=== PATIENT | female | born 1960 | race Asian ===

== ENCOUNTER 2016-10-13 16:45 | Inpatient (IN) | payer MEDICAID ==
[~2016-10-13] VITALS: Ht 165.1 cm; Wt 95.2 kg
--- NOTE | 2016-10-13 16:59 | NUR ---
PT RETURNED TO LOBBY PENDING ROOM AVAILABILITY. VSS. RESPS E/U. MEDICATED W/ZOFRAN 4MG PO PER PROTOCOL PER ALEKSANDER LION RN.
--- NOTE | 2016-10-13 17:12 | NUR ---
ADMITTING CALLED STATING PT IS LAYING ON ED LOBBY FLOOR; PT FOUND ON ED LOBBY FLOOR STATING SHE IS MORE COMFORTABLE THERE. PT HAS NO S/S OF RESP DISTRESS; SKIN IS WNL
--- NOTE | 2016-10-13 18:20 | NUR ---
PT UNABLE TO GIVE URINE SAMPLE OF YET. PT INST TO PROVIDE CLEAN CATCH URINE SOON POSSIBLE
--- NOTE | 2016-10-13 18:22 | NUR ---
US AT BEDSIDE AT THIS TIME.
[2016-10-13 18:59] LABS: BASOPHIL % 0.2 % (0-2); PLATELET COUNT 205 x10^3mcL (130-400); RED CELL DISTRIBUTION WIDTH 13.7 % (11.5-14.5)
--- NOTE | 2016-10-13 19:00 | NUR ---
REPORT GIVEN TO ANAMARIA MILLER RESUMING CARE OF PT AT THIS TIME
[2016-10-13 19:12] LABS: CALCIUM 9.2 mg/dL (8.5-10.1); CARBON DIOXIDE 30.6 mmol/L (21-32); CHLORIDE SERUM 102 mmol/L (98-107); CREATININE SERUM 0.9 mg/dL (0.6-1.0); GFR1 > 60 mL/min; GLUCOSE SERUM 142 mg/dL (74-106); POTASSIUM SERUM 4.1 mmol/L (3.5-5.1); SODIUM SERUM 139 mmol/L (136-145)
--- NOTE | 2016-10-13 19:14 | NUR ---
REC'D PT IN ED WITH EYES CLOSED, RESP E/U, RESPONDS TO VERBAL STIMULI. PT HAS NO COMPLAINATS AT THIS TIME. FLUIDS STILL INFUSING, IV INTACT AND PATENT. AT BEDSIDE
[2016-10-13 19:27] LABS: ALBUMIN 3.6 g/dL (3.4-5.0); ALKALINE PHOSPHATASE 48 U/L (46-116); ALT/SGPT 82 U/L (14-59); AST/SGOT 95 U/L (15-37); TOTAL PROTEIN, SERUM 7.7 g/dL (6.4-8.2)
--- NOTE | 2016-10-13 19:59 | NUR ---
REPORT GIVEN TO BETH TO ASSUME CARE OF PT
--- NOTE | 2016-10-13 20:00 | NUR ---
REPORTED TO ANGELA CAMPOS METRONIDAZOLE STILL NEEDS TO BE GIVEN, MED WILL BE SENT UP WITH PT
[2016-10-13 20:03] LABS: AMYLASE 3393 U/L (25-115)
[2016-10-13 20:21] LABS: LIPASE 48127 IU/L (73-393)
--- NOTE | 2016-10-13 20:25 | NUR ---
RECEIVED PT FROM ED VIA GUERNEY, CAME IN DUE TO ABDOMINAL PAIN AND VOMITING. AAOX4. NO SOB NOTED, LUNG SOUNDS CTA. DENIES CHEST PAIN/PRESSURE, NSR ON THE MONITOR. C/O 8/10 ACHING UPPER ABDOMINAL PAIN. BOWEL SOUNDS ACTIVE. DENIES NAUSEA/VOMITING AT THIS TIME. STATED THAT SHE VOMITED X5 BEFORE ADMISSION. VSS. IV SITE PATENT AND INTACT. RECEIVED PT FROM ED W/ FLAGYL TO BE INFUSED. SIDE RAILS UPX2. CALL LIGHT ON REACH. MACHINE SHOP SUPERVISOR AT BEDSIDE. ENDORSED
--- NOTE | 2016-10-13 20:31 | NUR ---
RECEIVED PT FROM [place] MILLER. PT A/OX4. DENIES PAIN. IV PATENT. ORIENTED TO ROOM AND SURROUNDINGS. FAMILY AT BEDSIDE. CALL LIGHT WITHIN REACH, BED IN LOW POSITION. WILL CONTINUE TO MONITOR.
[2016-10-13 20:37] VITALS: BP 111/64
[2016-10-13] MEDS ORDERED: PROVENTIL0.09 MG/A1 INH (20:39)
[2016-10-13 20:40] LABS: MAGNESIUM 1.9 mg/dL (1.8-2.4); PHOSPHOROUS 4.4 mg/dL (2.5-4.9)
[2016-10-13 20:42] VITALS: Ht 165.1 cm; Wt 95.2 kg
[2016-10-13 20:54] LABS: CHOLESTEROL/HDL RATIO 2.9
[2016-10-13 21:03] LABS: FREE T4 1.34 ng/dL (0.76-1.46); FREE THYROXINE INDEX 3.3 ug/dL (1.4-4.5); T4(THYROXINE) 9.3 ug/dL (4.7-13.3)
[2016-10-13 21:14] LABS: T3 TOTAL 1.16 ng/mL
[2016-10-13 21:17] VITALS: BP 111/64
--- NOTE | 2016-10-14 00:31 | NUR ---
PT RESTING AT THIS TIME IN NO ACUTE DISTRESS. RR EVEN AND UNLABORED. IV PATENT. BED IN LOW POSITION, WILL CONTINUE TO MONITOR. WILL CONTINUE TO MONITOR.
[2016-10-14 05:30] VITALS: BP 98/57
[2016-10-14 06:09] LABS: ALKALINE PHOSPHATASE 35 U/L (46-116); ALT/SGPT 52 U/L (14-59); AST/SGOT 38 U/L (15-37); CARBON DIOXIDE 28.7 mmol/L (21-32); CHLORIDE SERUM 105 mmol/L (98-107); CREATININE SERUM 0.8 mg/dL (0.6-1.0); GFR1 > 60 mL/min; GLUCOSE SERUM 124 mg/dL (74-106); MAGNESIUM 1.7 mg/dL (1.8-2.4); PHOSPHOROUS 4.6 mg/dL (2.5-4.9); POTASSIUM SERUM 3.6 mmol/L (3.5-5.1); SODIUM SERUM 141 mmol/L (136-145); TOTAL PROTEIN, SERUM 6.3 g/dL (6.4-8.2)
[2016-10-14 06:43] LABS: BASOPHIL % 0.4 % (0-2); PLATELET COUNT 202 x10^3mcL (130-400); RED CELL DISTRIBUTION WIDTH 14.1 % (11.5-14.5)
--- NOTE | 2016-10-14 06:56 | NUR ---
ECHOCARDIOGRAM CANCELLATION REQUESTED
--- NOTE | 2016-10-14 07:10 | NUR ---
PT IN BED. SLEEPING. EFFORTLESS BREATHING ON ROOM AIR. IV PATENT, NS AT 100ML/HR TO RIGHT WRIST. APPLIED SPIKE MACHINE FEEDER TO IV PUMP. BED IN LOWEST POSITION, CALL LIGHT WITHIN REACH.
[2016-10-14 07:47] LABS: LIPASE 13405 IU/L (73-393)
[2016-10-14 10:00] VITALS: BP 99/57
--- NOTE | 2016-10-14 10:59 | NUR ---
DR. NARVAEZ IN TO SEE PT. EXPLAINING POSSIBLE PROCEDURE TP PT. PT AGREED TO PROCEED WITH PROCEDURE.
--- NOTE | 2016-10-14 11:59 | NUR ---
SURGERY CONSENT WITNESSED. FAMILY AT BEDSIDE. G WIPES COMPLETED. OR STAFF TRANSPORTED PT VIA GURNEY. NO DISTRESS NOTED.
--- NOTE | 2016-10-14 15:35 | NUR ---
PT BACK FROM OR. PT ABLE TO SLIDE SELF FROM GURNEY TO BED. DOSES OFF QUICKLY, RESPONDS TO VERBAL COMMANDS. DROWSY. VITAL SIGNS: 97.3; 65; 16; 100% ON 2LNC, 127/73. DENIES PAIN. INCISION SITES WITH BANDAID DRESSING, CDI, ONE MAU DRAIN IN PLACE WITH INITIAL OUTPUT OF 75ML OF SEROUSSANGUINEOUS FLUID. IV FLUIDS RESTARTED. BED IN LOWEST POSITION, AT BEDSIDE. WILL CONTINUE TO MONITOR.
--- NOTE | 2016-10-14 17:35 | NUR ---
PT AWAKE. DENIES PAIN AT MOMENT. REINFORCED INCETIVE SPYROMETER USAGE. PT RETURNED DEMONSTRATION. AT BEDSIDE. CALL LIGHT WITHIN REACH.
--- NOTE | 2016-10-14 20:40 | NUR ---
DRAINED 35 ML SEROSANGUINOUS FLUID FROM MAU DRAIN.
--- NOTE | 2016-10-14 20:46 | NUR ---
TALKED TO DR. FRIEDMAN ABOUT PT'S BS. AWAITING ORDERS.
[2016-10-14 20:47] VITALS: BP 118/72
--- NOTE | 2016-10-14 20:56 | NUR ---
SPOKE WITH DR. FRIEDMAN. WAS ORDERED TO GIVE THE 3 UNITS OF INSULIN PER SLIDING SCALE.
--- NOTE | 2016-10-14 22:13 | NUR ---
UA SENT DOWN TO LAB AT 2006.
[2016-10-14 23:12] LABS: microscopic required? NO
[2016-10-14 23:28] LABS: UA SPECIFIC GRAVITY 1.025 (1.005-1.035); urine erythrocyte NEGATIVE (NEGATIVE)
[2016-10-14 23:33] LABS: AMPHETAMINE QUAL UR NONE DETECTED (NEG <=1000)
--- NOTE | 2016-10-15 03:45 | NUR ---
90 ML OF FLUID REMOVED FROM MAU DRAIN.
[2016-10-15 05:42] LABS: BASOPHIL % 0.4 % (0-2); PLATELET COUNT 176 x10^3mcL (130-400); RED CELL DISTRIBUTION WIDTH 13.9 % (11.5-14.5)
--- NOTE | 2016-10-15 06:00 | NUR ---
PT IS RESTING COMFORTABLY AND ALL NEEDS HAVE BEEN MET. AT BEDSIDE. NO ACUTE DISTRESS NOTED. CALL LIGHT WITHIN REACH. WILL ENDORSE TO MORNING SHIFT.
[2016-10-15 06:06] VITALS: BP 108/63
[2016-10-15 06:17] LABS: ALKALINE PHOSPHATASE 29 U/L (46-116); ALT/SGPT 52 U/L (14-59); AST/SGOT 47 U/L (15-37); BILIRUBIN TOTAL 0.68 mg/dL (0.20-1.00); CALCIUM 7.9 mg/dL (8.5-10.1); CHLORIDE SERUM 105 mmol/L (98-107); CREATININE SERUM 0.6 mg/dL (0.6-1.0); GFR1 > 60 mL/min; GLUCOSE SERUM 106 mg/dL (74-106); MAGNESIUM 1.7 mg/dL (1.8-2.4); POTASSIUM SERUM 3.8 mmol/L (3.5-5.1); SODIUM SERUM 139 mmol/L (136-145)
[2016-10-15 06:32] LABS: ALBUMIN 2.6 g/dL (3.4-5.0); TOTAL PROTEIN, SERUM 5.9 g/dL (6.4-8.2)
--- NOTE | 2016-10-15 07:10 | NUR ---
PT AWAKE, COOPERATIVE OF CARE. DENIES PAIN AT MOMENT. ABD WALL DRESSING CDI. MAU DRAIN IN PLACE, DRESSING DRY. 60ML OUTPUT. IV INFUSING WELL TO LEFT WRIST #22 NS 100ML/HR. BED IN LOWEST POSITION, CALL LIGHT WITHIN REACH.
--- NOTE | 2016-10-15 08:30 | NUR ---
PT UP OUT BED TO BEDSIDE CHAIR. DENIES PAIN. PT TO EAT BREAKFAST IN CHAIR.
[2016-10-15 10:00] VITALS: BP 105/59
--- NOTE | 2016-10-15 11:49 | NUR ---
PT AMBULATING IN HALLWAY AROUND UNIT. TWO TURNS TOTAL. PT DENIES DISCOMFORT. WILL CONTINUE TO MONITOR.
--- NOTE | 2016-10-15 17:30 | NUR ---
CHANGED SURGICAL WOUND DRESSING. MAU DRAIN TUBE REMAINS IN PLACE. APPLIED NEW DRESSING. ALL BANDAIDS AND MAU DRESSING IN PLACE. PT TOLERATED PROCEDURE WELL. DENIES PAIN AT MOMENT. CALL LIGHT WITHIN REACH.
[2016-10-15 18:46] VITALS: BP 103/61
--- NOTE | 2016-10-15 19:35 | NUR ---
PT IS AAOX4. AT BEDSIDE. LUNG SOUNDS ARE CTA ON RA. MED/SURG PT. BOWEL SOUNDS ARE ACTIVE. NO EDEMA, PULSES PRESENT. MAU DRAIN NOTED. PT IS AMBULATORY AND IN NO ACUTE DISTRESS. BED IS IN THE LOWEST POSITION AND CALL LIGHT IS WITHIN REACH. WILL CONTINUE TO MONITOR.
[2016-10-15 21:45] VITALS: BP 105/66
--- NOTE | 2016-10-15 23:20 | NUR ---
REMOVED 40 ML FROM MAU DRAIN.
--- NOTE | 2016-10-16 03:53 | NUR ---
REMOVED 30 ML FROM MAU DRAIN
[2016-10-16 06:05] VITALS: BP 109/54
[2016-10-16 06:20] LABS: BASOPHIL % 0.2 % (0-2); PLATELET COUNT 181 x10^3mcL (130-400); RED CELL DISTRIBUTION WIDTH 13.6 % (11.5-14.5)
[2016-10-16 06:24] LABS: CALCIUM 8.1 mg/dL (8.5-10.1); CARBON DIOXIDE 26.3 mmol/L (21-32); CHLORIDE SERUM 104 mmol/L (98-107); CREATININE SERUM 0.6 mg/dL (0.6-1.0); GFR1 > 60 mL/min; GLUCOSE SERUM 102 mg/dL (74-106); POTASSIUM SERUM 3.6 mmol/L (3.5-5.1); SODIUM SERUM 140 mmol/L (136-145)
--- NOTE | 2016-10-16 07:00 | NUR ---
AAOX4 ABLE TO VERBALIZE NEEDS WITH CLEAR AND COHERENT SPEECH, ABD W/ SURGICAL INCISIONS X4 COVERED WITH CLEAN AND DRY BANDAIDS, MAU DRAIN W/ 20ML SEROUSANGUIN FLUID IN BULB, ACTIVE BOWEL SOUNDS X4 QUADS, DENIES GI DISTRESS, TOLERATING DIET WITHOUT GI DISTRESS, AMBULATES WITH SLOW BUT STEADY GAIT, CALL LIGHT WITHIN REACH, WILL CONTINUE TO PROVIDE CARE.
--- NOTE | 2016-10-16 08:01 | NUR ---
C/O PAIN AT IV SITE, NO SIGNS OF PHLEBITIS OR INFILTRATION NOTED, INFUSION OF NS 40ML/HR STOPPED, IV IS PATENT, FLUSHING, BUT PAINFUL, WILL D/C AND START NEW IV.
--- NOTE | 2016-10-16 09:47 | NUR ---
45ML OF SEROSANGUINEOUS FLUID REMOVED FROM MAU BULB, SX SITES CLEAN AND DRY.
[2016-10-16 10:00] VITALS: BP 112/68
[2016-10-16] MEDS ORDERED: MOT800 PO (11:23)
[2016-10-16 13:03] VITALS: BP 112/68
--- NOTE | 2016-10-16 14:40 | NUR ---
PATIENT DISCHARGED HOME, REVIEWED DISCHARGE INSTRUCTIONS WITH PATIENT AND , INCLUDING FOLLOW UP APPOINTMENT WITH DR NARVAEZ ON 10/18/16, PATIENT AND VERBALIZED UNDERSTANDING OF DISCHARGE INSTRUCTIONS. MAU DRAIN REMOVED, X1 SUTURE REMOVED, DRAIN TIP INTACT, SCANT AMOUNT OF FLUID NOTED ON DRAIN BULB, NO FLUID NOTED FROM SX SITE, COVERED WITH GAUZE AND ISLAND DRESSING. IV D/C'D, CATH TIP INTACT, NO BLEEDING OR PHLEBITIS NOTED, COVERED WITH BANDAID. X3 SURGICAL SITES WITH MAX COVERED WITH BANDAID, PHOT IN CHART. ALL QUESTIONS ANSWERED, PT ASSISTED DOWNSTAIRS VIA WHEELCHAIR BY AND MANAGEMENT INTERN.
== END 2016-10-16 14:41 | disposition home or self-care (01) | DRG 263 ==
LOC: ED 16:45 → DU 19:22 → MU 19:22 → DU 20:28 → MU 10-15 11:18
PROVIDERS: Emergency Medicine; ADMIT Family Medicine
PROC: 0FT44ZZ Resection of Gallbladder, Percutaneous Endoscopic Approach (ICD-10-PCS; principal; 2016-10-16)
PROC: BF031ZZ Plain Radiography of Gallbladder and Bile Ducts using Low Osmolar Contrast (ICD-10-PCS; principal; 2016-10-16)
DX: K85.10 Biliary acute pancreatitis without necrosis or infection (principal); N17.0 Acute kidney failure with tubular necrosis; E43 Unspecified severe protein-calorie malnutrition; D68.69 Other thrombophilia; E11.65 Type 2 diabetes mellitus with hyperglycemia; J45.909 Unspecified asthma, uncomplicated; E78.5 Hyperlipidemia, unspecified; Z68.34 Body mass index [BMI] 34.0-34.9, adult
CPT/HCPCS: 83880; 84439; 94150; C1887; J0295; J0330; J0690; J1885; J2250; J2405; J2704; J2710; J3010; J3490; J7030; J7120; Q0092; Q0162; Q9967

== ENCOUNTER 2016-10-20 06:53 | Emergency (ER) | payer MEDICAID ==
[~2016-10-20 06:53] MED LIST: MOT800 PO; PROVENTIL0.09 MG/A1 INH
[2016-10-20 10:14] VITALS: BP 120/64
== END 2016-10-20 10:14 | disposition home or self-care (01) ==
LOC: ED 06:53
DX: R10.13 Epigastric pain (principal); R11.2 Nausea with vomiting, unspecified; J45.909 Unspecified asthma, uncomplicated; Z79.51 Long term (current) use of inhaled steroids; Z90.49 Acquired absence of other specified parts of digestive tract
CPT/HCPCS: J1885; Q0162

== ENCOUNTER 2017-04-14 20:15 | Emergency (ER) | payer OTHER ==
[~2017-04-14] VITALS: Ht 165.1 cm; Wt 91.6 kg
[2017-04-14 20:44] VITALS: Ht 165.1 cm; Wt 91.6 kg
[2017-04-15 01:41] VITALS: BP 116/64
== END 2017-04-15 01:41 | disposition home or self-care (01) ==
LOC: ED 20:15
DX: J45.901 Unspecified asthma with (acute) exacerbation (principal); J45.41 Moderate persistent asthma with (acute) exacerbation; Z90.49 Acquired absence of other specified parts of digestive tract
CPT/HCPCS: 87804; J1100; J7613; J7644